=== PATIENT | female | born 1945 | race Caucasian/White ===

== ENCOUNTER 2017-05-24 07:15 | Emergency (ER) | payer MEDICARE, BC ==
[2017-05-24] MEDS ORDERED: Magnesium Sulfate 2 GM/100 ML BAG ONE (07:46)
[2017-05-24 07:59] LABS: #Basophils 0.1 thou/uL (0.0-0.2); #Eosinphils 0.3 thou/uL (0.0-0.7); #Lymphocytes 1.2 thou/uL (1.20-3.40); #Monocytes 0.5 thou/uL (0.11-0.59); #Neutrophils 6.6 thou/uL (1.40-6.50); %Basophils 0.7 % (0.0-1.0); %Monocytes 5.2 % (0.0-10.0); %Neutrophils 76.2 % (42.0-75.0); Hemoglobin 12.9 g/dL (12.0-16.0); Mean Corpuscular HGB CONC 33.4 g/dL (32.0-36.0); Mean Corpuscular Hemoglobin 32.8 pg (27.0-31.0); Mean Corpuscular Volume 98.3 fl (81.0-99.0); Mean Platelet Volume 6.7 fL (7.4-10.4); Platelet Count 227 thou/uL (130-400); RBC Distribution Width 13.7 % (11.5-14.5); Red Blood Cell (RBC) Count 3.93 mill/uL (4.20-5.40); White Blood Cell (WBC) Count 8.7 thou/uL (4.8-10.8)
--- NOTE | 2017-05-24 08:09 | RAD ---
PORTABLE CHEST: HISTORY: Dyspnea. COMPARISON: 11/28/15. FINDINGS: Heart mildly enlarged but stable in appearance. Mild vascular and interstitial prominence suggests m ild congestion. No confluent consolidation. No evidence of interval change when compared to the eleonora or study. IMPRESSION: Evidence of mild cardiomegaly and mild vascular congestion, stable in appearance from prior exam. POS: [facility]
[2017-05-24 08:21] LABS: ALT (SGPT) 16 U/L (8-55); AST (SGOT) 21 U/L (5-34); Albumin 4.1 g/dL (3.4-4.8); Alkaline Phosphatase 72 U/L (40-150); Anion Gap 12 mmol/L (10-20); BUN (Urea Nitrogen) 20 mg/dL (9.8-20.1); Bilirubin, Total 0.5 mg/dL (0.2-1.2); CK (CPK) 64 U/L (29-168); Calc. Creatinine Clearance 0 mL/min (70-130); Calcium 9.8 mg/dL (7.8-10.44); Carbon Dioxide 26 mmol/L (23-31); Chloride 105 mmol/L (98-107); Estimated GFR-MDRD 63; Globulin 2.7 g/dL (2.4-3.5); Glucose 102 mg/dL (83-110); Potassium 3.8 mmol/L (3.5-5.1); Protein, Total 6.8 g/dL (6.0-8.3); Sodium 139 mmol/L (136-145)
[2017-05-24 08:25] LABS: CKMB 1.2 ng/mL (0-6.6); Troponin I 0.022 ng/mL (< 0.028)
[2017-05-24] MEDS ORDERED: Ibuprofen 200 MG TAB ONE (08:33)
== END 2017-05-24 10:16 | disposition home or self-care (01) ==
LOC: ERS 07:15
DX: J44.1 Chronic obstructive pulmonary disease with (acute) exacerbation (principal); F41.9 Anxiety disorder, unspecified; M19.90 Unspecified osteoarthritis, unspecified site; E78.5 Hyperlipidemia, unspecified; I10 Essential (primary) hypertension; Z87.891 Personal history of nicotine dependence; Z79.82 Long term (current) use of aspirin; Z79.899 Other long term (current) drug therapy
CPT/HCPCS: 71045; 80053; 82553; 83880; 84484; 85025; 96365; J3475

== ENCOUNTER 2017-07-25 10:22 | Outpatient (CLI) | payer MEDICARE, BC ==
--- NOTE | 2017-07-25 11:44 | RAD ---
PA AND LATERAL CHEST: History: Dyspnea. Comparison: 06-21-17 FINDINGS: Heart size is upper normal and stable. Lungs show mild hyperexpansion. Lung leong appear clear with no infiltrate or vascular congestion apparent. Posterior gutters are blunted and I cannot exclude sma ll effusions. Otherwise, no acute process or interval change noted. POS: [facility]
== END 2017-07-25 10:23 | disposition home or self-care (01) ==
LOC: RAD 10:22
PROVIDERS: ATTEND Internal Medicine
DX: R06.00 Dyspnea, unspecified (principal)
CPT/HCPCS: 71046

== ENCOUNTER 2017-08-30 13:17 | Outpatient (CLI) | payer MEDICARE, BC | END 2017-08-30 13:18 | disposition home or self-care (01) | LOC: CP 13:17 | PROVIDERS: ATTEND Internal Medicine | DX: J44.9 Chronic obstructive pulmonary disease, unspecified (principal); J96.11 Chronic respiratory failure with hypoxia | CPT/HCPCS: 94060; 94727; 94729 ==

== ENCOUNTER 2019-03-11 08:23 | Outpatient (CLI) | payer MEDICARE, BC ==
[2019-03-11] MEDS ORDERED: Iopamidol 370 76% 100 ML VIAL ONE (10:50)
--- NOTE | 2019-03-11 11:30 | CT ---
EXAM: CTA abdomen and pelvis HISTORY: Abdominal aortic aneurysm COMPARISON: 08/31/2016 TECHNIQUE: Multiple contiguous axial images were obtained a CTA of the abdomen and pelvis without and with contrast. Sagittal and coronal 3-D MIP reformats were performed. FINDINGS: LIVER: Hypodensities measuring up to 3.1 cm in size represent cysts.. GALLBLADDER: Unremarkable. KIDNEYS: 2.4 cm hypodensity in the left kidney represents a cyst. SPLEEN: Unremarkable. PANCREAS: Unremarkable. BOWEL: Scattered diverticula in the colon. REPRODUCTIVE ORGANS: Unremarkable RETROPERITONEUM: No lymphadenopathy ABDOMINAL WALL SOFT TISSUES: Unremarkable BONES: Degenerative changes in the spine. ABDOMINAL AORTA: There is a stent graft within the aorta. The aorta measures 5.6 cm in greatest dimen jenifer. 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 CELIAC TRUNK: Patent SMA: Patent ALYSE: Occluded RENAL ARTERIES: A stent is seen in the proximal left renal artery. Mild atherosclerotic disease is se en in the proximal right renal artery. IMPRESSION: 1. Slight enlargement of abdominal aortic aneurysm with type II endoleak outside the stent graft. 2. Diverticulosis 3. Left renal cyst 4. Hepatic cysts
== END 2019-03-11 08:24 | disposition home or self-care (01) ==
LOC: CT 08:23
PROVIDERS: ATTEND Thoracic Surgery (Cardiothoracic Vascular Surgery)
DX: T82.330A Leakage of aortic (bifurcation) graft (replacement), initial encounter (principal); K57.90 Diverticulosis of intestine, part unspecified, without perforation or abscess without bleeding; N28.1 Cyst of kidney, acquired; K76.89 Other specified diseases of liver
CPT/HCPCS: 74174; 82565; Q9967

== ENCOUNTER 2020-02-02 16:24 | Observation (INO) | payer MEDICARE, BC ==
[2020-02-02 16:54] LABS: #Eosinphils 0.5 thou/uL (0.0-0.7); #Lymphocytes 2.3 thou/uL (1.20-3.40); #Monocytes 0.6 thou/uL (0.11-0.59); #Neutrophils 5.7 thou/uL (1.40-6.50); %Basophils 0.5 % (0.0-1.0); %Eosinophils 5.4 % (0.0-10.0); %Lymphocytes 25.2 % (21.0-51.0); %Monocytes 6.9 % (0.0-10.0); %Neutrophils 62.1 % (42.0-75.0); Hemoglobin 15.6 g/dL (12.0-16.0); Mean Corpuscular HGB CONC 34.7 g/dL (32.0-36.0); Mean Corpuscular Hemoglobin 32.8 pg (27.0-31.0); Mean Corpuscular Volume 94.5 fL (78.0-98.0); Platelet Count 259 thou/uL (130-400); RBC Distribution Width 13.6 % (11.5-14.5); Red Blood Cell (RBC) Count 4.75 mill/uL (4.20-5.40); White Blood Cell (WBC) Count 9.2 thou/uL (4.8-10.8)
--- NOTE | 2020-02-02 17:12 | RAD ---
EXAM: CHEST ONE VIEW HISTORY: Shortness of breath. Low oxygen saturation. COMPARISON: 07/25/2017 FINDINGS: Postoperative changes related to cardiac valve replacement are noted. Cardiac silhouette is magnified by projection. Pulmonary vasculature is within normal limits. There is lucency within the upper lung zones with increased interstitial opacities in the lung bases which may related to bullous emphy sematous changes in the upper lung zones with crowding of bronchovascular markings at each lung base. Similar finding was seen on prior exam. No consolidation or pleural fluid is identified. Promin ent left glenohumeral osteoarthropathy is present with postoperative changes right shoulder. IMPRESSION: 1. No acute cardiopulmonary process. 2. Chronic lung changes.
[2020-02-02 17:15] LABS: ALT (SGPT) 20 U/L (8-55); AST (SGOT) 29 U/L (5-34); Albumin 4.5 g/dL (3.4-4.8); Alkaline Phosphatase 95 U/L (40-110); Anion Gap 18 mmol/L (10-20); BUN (Urea Nitrogen) 31 mg/dL (9.8-20.1); Bilirubin, Total 0.5 mg/dL (0.2-1.2); Calc. Creatinine Clearance 0 mL/min (70-130); Calcium 10.2 mg/dL (7.8-10.44); Carbon Dioxide 24 mmol/L (23-31); Chloride 103 mmol/L (98-107); Estimated GFR-MDRD 47; Globulin 2.9 g/dL (2.4-3.5); Glucose 97 mg/dL (83-110); Potassium 4.2 mmol/L (3.5-5.1); Protein, Total 7.4 g/dL (6.0-8.3); Sodium 141 mmol/L (136-145)
[2020-02-02] MEDS ORDERED: methylPREDNISolone Sod Succ/PF 125 MG/2 ML VIAL ONE (17:40)
[2020-02-02] MEDS ORDERED: Lidocaine Viscous Sol 2% 15 ml UD Cup ONE (17:40)
[2020-02-02] MEDS ORDERED: Mag-Al 1200 mg/1200 mg/30 ML UDCUP ONE (17:40)
[2020-02-02] MEDS ORDERED: Aspirin Chewable 81 MG TAB ONE (17:40)
[2020-02-02 20:42] LABS: Troponin I 0.018 ng/mL (< 0.028)
[2020-02-02] MEDS ORDERED: HYDROcodone/Acetaminophen 5/325 mg Tablet PO PRN (22:27)
[2020-02-02 23:24] LABS: Troponin I 0.024 ng/mL (< 0.028)
[2020-02-03 03:55] LABS: #Lymphocytes 0.8 thou/uL (1.20-3.40); #Monocytes 0.1 thou/uL (0.11-0.59); %Basophils 0.3 % (0.0-1.0); %Eosinophils 0.1 % (0.0-10.0); %Lymphocytes 12.8 % (21.0-51.0); %Monocytes 0.8 % (0.0-10.0); Hemoglobin 15.3 g/dL (12.0-16.0); Mean Corpuscular HGB CONC 34.5 g/dL (32.0-36.0); Mean Corpuscular Hemoglobin 32.3 pg (27.0-31.0); Mean Corpuscular Volume 93.5 fL (78.0-98.0); Mean Platelet Volume 6.8 fL (7.4-10.4); Platelet Count 234 thou/uL (130-400); RBC Distribution Width 13.4 % (11.5-14.5); Red Blood Cell (RBC) Count 4.74 mill/uL (4.20-5.40); White Blood Cell (WBC) Count 5.8 thou/uL (4.8-10.8)
[2020-02-03 04:30] LABS: Anion Gap 15 mmol/L (10-20); BUN (Urea Nitrogen) 28 mg/dL (9.8-20.1); Calc. Creatinine Clearance 72 mL/min (70-130); Calcium 9.7 mg/dL (7.8-10.44); Carbon Dioxide 22 mmol/L (23-31); Chloride 105 mmol/L (98-107); Estimated GFR-MDRD 68; Glucose 140 mg/dL (83-110); Magnesium 2.2 mg/dL (1.6-2.6); Potassium 4.2 mmol/L (3.5-5.1); Sodium 138 mmol/L (136-145)
--- NOTE | 2020-02-03 05:43 | HP ---
REASON FOR ADMISSION: Chest pain. HISTORY OF PRESENT ILLNESS: This is a 74-year-old female patient who is presenting with shortness of breath and chest discomfort. History going back to approximately a week before her presentation. She has been doing a lot of work around the house and exposed to a lot of dust and she has been feeling somewhat short of breath, but today her shortness of breath became worse. She describes it as inability to take a full breath. Also describes pain across her chest. She does have chronic chest pain, chronic abdominal pain after her valve surgeries and abdominal surgeries, and she claims that her not feeling well exacerbated these chronic pains. In the morning, she felt okay, and at some point around 10:30 a.m., she felt short of breath. She felt chest pain, described as burning and pressure-like in nature in the midsternal area towards the mid abdominal area. The pain is worse with sitting. It is better with bending forward. When she bends forward, she breathes easier. PAST MEDICAL HISTORY: 1. High blood pressure. 2. Abdominal aortic aneurysm, post repair. 3. Mitral valve repair. 4. Heart disease, post stenting. 5. COPD. SOCIAL HISTORY: Quit smoking 4 years ago. Drinks alcohol occasionally. ALLERGIES: TO SULFA. FAMILY HISTORY: Reviewed and found to be noncontributory. REVIEW OF SYSTEMS: All systems reviewed, except the above-mentioned shortness of breath, found to be negative. PHYSICAL EXAMINATION: GENERAL: Awake, alert, oriented, does not appear in distress. VITAL SIGNS: Her blood pressure is 130/57, heart rate is 68, temperature is 98.5, saturating 95% on 2 L nasal cannula. HEENT: Head is nontraumatic and normocephalic. Pupils are equal and reactive. Extraocular movements are intact. Nonicteric sclerae. Well-injected conjunctivae. Oral mucosa normal. Nasal mucosa normal. NECK: Supple. No adenopathy. No murmur. Thyroid is not palpable. Trachea is midline. No supraclavicular adenopathy. CARDIOVASCULAR: S1, S2 regular. No murmurs. No gallops. No friction rubs. No displacement of PMI. LUNGS: Decreased air entry bilaterally. No wheezes, rhonchi, no crackles. ABDOMEN: Bowel sounds are positive. Nontender abdomen. No hepatosplenomegaly. EXTREMITIES: No lower extremity edema. No cyanosis noted. NEUROLOGIC: Cranial nerves 2 through 12 within normal limits. Normal motor function. Normal sensory function. Normal reflexes. LABORATORY DATA: Blood work shows WBC of 9.2, hemoglobin of 15.6, platelets of 259. INR 1. Sodium 141, potassium 4.2, bicarb of 24, BUN 31, creatinine 1.13. DIAGNOSTIC STUDIES: EKG shows a heart rate of 69 beats per minute. Nonspecific ST-segment changes, V2, V3; nonspecific T-wave changes. QT prolonged at 501, premature atrial contraction. ASSESSMENT AND PLAN: This is a 74-year-old female patient presenting with shortness of breath, could be due to exacerbation of her chronic obstructive pulmonary disease. Also atypical chest pain. So far, troponin negative. Cardiac: The patient will be admitted to telemetry. We will continue cycling her cardiac enzymes. We will consult Dr. Ortiz who is her systems security analyst for further input, and since the pain is better with leaning forward, we will do an echocardiogram to rule out pericarditis. Also, we will have her on baby aspirin and we will provide her with blood pressure control, and I am awaiting for her med rec to be done to reconcile her medications. Pulmonary: The patient does have history of chronic obstructive pulmonary disease. Her shortness of breath could be due to chronic obstructive pulmonary disease exacerbation in the setting of recent exposure to dusts and fumes due to the fact that she has been renovating her house, so we will have her on neb treatments. She did receive a dose of Solu-Medrol in the emergency room. For deep venous thrombosis prophylaxis, she will be on Lovenox. Her QT is prolonged. We will check a magnesium level. I did discuss with her code status. She wishes to be a full code. Job ID: [id number]
--- NOTE | 2020-02-03 09:08 | PDOC.HOSPP ---
- Subjective Encounter Date: 02/03/20 Encounter Time: 11:00 Subjective: Patient with some improvement in SOB. Waiting on community mental health social worker. Feels ready to go home. Back on room air and breathing well. - Objective Vital Signs & Weight: Vital Signs (12 hours) Temp Pulse Resp BP Pulse Ox 02/02/20 22:59 93 20 93 L 02/02/20 21:08 98.7 F 84 18 134/91 H 98 Weight Weight 169 lb 1.513 oz Result Diagrams: 02/03/20 03:43 02/03/20 03:43 Hospitalist ROS - Review of Systems Constitutional: denies: fever, chills Respiratory: reports: shortness of breath. denies: cough, wheezing Cardiovascular: denies: chest pain, palpitations Gastrointestinal: denies: nausea, vomiting, abdominal pain - Medication Medications: Active Medications Generic Name Dose Route Start Last Admin Trade Name Freq PRN Reason Stop Dose Admin Albuterol/Ipratropium 3 ml 02/03/20 01:00 02/02/20 22:59 Ipratropium/Albuterol Sulfate 3 Ml Neb EZPAP 3 ml [id number] ISHAAN Administration - Exam General Appearance: NAD, awake alert ENT: moist mucosa Heart: RRR, no murmur, no gallops, no rubs Respiratory: no rales, no ronchi, no tachypnea Respiratory - other findings: mild wheezing, good air movement, no increased WOB Gastrointestinal: soft, non-tender, non-distended, normal bowel sounds Psychiatric: normal affect, normal behavior, A&O x 3 Hosp A/P (1) Chest pain Code(s): R07.9 - CHEST PAIN, UNSPECIFIED Status: Acute Plan: acute on chronic, positional, ECHO pending (2) Shortness of breath Code(s): R06.02 - SHORTNESS OF BREATH Status: Acute (3) COPD exacerbation Code(s): J44.1 - CHRONIC OBSTRUCTIVE PULMONARY DISEASE W (ACUTE) EXACERBATION Status: Acute (4) CAD (coronary artery disease) Code(s): I25.10 - ATHSCL HEART DISEASE OF [place] CORONARY ARTERY W/O ANG PCTRS Status: Chronic (5) Dyslipidemia Code(s): E78.5 - HYPERLIPIDEMIA, UNSPECIFIED Status: Chronic (6) HTN (hypertension) Code(s): I10 - ESSENTIAL (PRIMARY) HYPERTENSION Status: Chronic - Plan Patient with flair of her chronic chest pain, worse with leaning forward. Associated with SOB. Treating for COPD exacc with steroids and nebs. ECHO and cardiology consult pending. Possibly home later today. DVT Proph: Lovenox GI Proph: Pepcid
[2020-02-03] MEDS ORDERED: predniSONE 20 MG TAB PO SCH (09:45)
[2020-02-03] MEDS ORDERED: Aspirin Chewable 81 MG TAB ONE (12:58)
[2020-02-03] MEDS ORDERED: Enoxaparin Sodium 40 MG/0.4 ML SYRINGE ONE (12:58)
[2020-02-03] MEDS: Aspirin 81 mg Enteric Coated Tablet PO SCH (13:03)
[2020-02-03] MEDS: Enoxaparin Sodium 40 MG/0.4 ML SYRINGE SC SCH (13:03)
[2020-02-03] MEDS ORDERED: predniSONE 20 MG TAB ONE (13:37)
[2020-02-03] MEDS ORDERED: Lisinopril 10 MG TAB ONE (13:37)
[2020-02-03] MEDS ORDERED: Lisinopril 10 MG TAB PO SCH ×2 (13:45→16:00)
[2020-02-03 14:27] LABS: SARS-CoV-2 MS2 Positive; SARS-CoV-2 N Gene Negative; SARS-CoV-2 S Gene Negative; SARS-CoV-2 by NAA Not Detected (NotDetected); SARS-CoV-2 orf1ab Negative
[2020-02-03 15:37] VITALS: BMI 27.8
[2020-02-03] MEDS ORDERED: Dicyclomine 20 MG TAB PO PRN (16:25)
[2020-02-03] MEDS: Famotidine 20 MG TAB PO SCH (20:39)
[2020-02-03] MEDS: Zolpidem Tartrate 5 MG TAB PO SCH ×2 (20:40→20:42)
[2020-02-04] MEDS: Zolpidem Tartrate 5 MG TAB PO SCH (00:06)
--- NOTE | 2020-02-04 00:51 | CON ---
DATE OF CONSULTATION: 02/03/2020 INDICATION FOR CONSULTATION: A 74-year-old female with dyspnea with a cardiac history in the past and also some mild chest discomfort. HISTORY OF PRESENT ILLNESS: This very unfortunate 74-year-old female, who I followed for quite some time now. She has had a significant cardiac history. She has undergone a mitral valve repair. She has also had a stent placement to the right coronary artery. She underwent a pericardial mitral valve replacement doing a robotic surgery. She has had a stent placed to the right coronary artery. She has also had I believe an aortic aneurysm repair by Dr. Johnson and she had been at home, doing relatively well. Her major procedure is the last major procedure for the mitral valve replacement and coronary artery disease was in 2018 in October. She had been home doing some remodeling and helping move some of the radu and things like that and she became more short of breath over the last several days. She does believe with more congestion. She did think that it is possible that she had COVID exposure back in May or July of this year, but this time she just mainly complained of having increasing shortness of breath and did have some chest discomfort which she described started in the lower or mid part of the sternal area, retrosternal area and then radiated down or into the abdominal area. Her cardiac enzymes are negative. There is no indication that she has suffered a myocardial infarction. Her EKG does not indicate any evidence of ischemia. She has a normal sinus rhythm with no acute changes otherwise that would indicate a myocardial infarction or ischemia. She has had no previous history of reflux. Until recently, she has noted some discomfort after she eats with some burning-type sensation. At this time, she is relatively stable. She has no chest discomfort and her shortness of breath has improved. She was given I believe a breathing treatment in the emergency room and since that time has felt better. PAST MEDICAL HISTORY: Significant for the mitral valve replacement actually. She has also had a history of right coronary artery stent placement. The right coronary artery was in October of 2017 I believe. She has also had left renal artery stent placement in 2013. She had a drug-eluting stent placed to the right coronary artery. She has history of pneumonia in the past. She has also had a history of diverticulitis. She has dyslipidemia. She has had a bladder tumor, hypertension. She has had abdominal aortic aneurysm repair. FAMILY HISTORY: Noncontributory. SOCIAL HISTORY: She smoked in the past many years, but stopped several years ago. She has no significant alcohol use. MEDICATIONS: Prior to admission included; 1. Atorvastatin 10 mg a day. 2. Lisinopril/hydrochlorothiazide 10/12.5 once a day. 3. Aspirin 81 mg a day. 4. Dicyclomine 20 mg a day. 5. Metformin HCL 500 mg once a day. 6. She also was on Anoro Ellipta 62.5/25 once a day. 7. Zolpidem 10 mg q.p.m. 8. Multivitamins. 9. Plavix 75 mg a day. 10. Nitroglycerin p.r.n. as needed, which she has not required any nitroglycerin. She has had no chest pain. ALLERGIES: SHE IS ALLERGIC TO SULFA AND QUESTIONABLE ANTIBIOTICS. SHE DOES HAVE A BIOPROSTHETIC MITRAL VALVE. REVIEW OF SYSTEMS: Relatively unremarkable except what was noted in the history of present illness. She mainly complains of shortness of breath and fatigue. PHYSICAL EXAMINATION: GENERAL: Reveals an elderly well-developed and well-nourished female, who is in no acute distress at this time. She is alert. She is oriented. VITAL SIGNS: Show a blood pressure 145/92. She is afebrile. Heart rate is in the 80s and shows a sinus rhythm, O2 saturations is the 96% on room air. Otherwise, she appears to be stable. HEENT: Shows the head to be normocephalic and atraumatic. Carotid pulses are present. Did not hear any bruits. CHEST: She does have some right basilar expiratory rales and what appears to be some expiratory wheezing. The left side appears to be clear. CARDIOVASCULAR: Reveals a regular rate and rhythm. She has normal S1 and S2. I do not hear any significant murmurs, heaves, thrills, bruits, or rubs. ABDOMEN: Soft and nontender. Positive bowel sounds are present. EXTREMITIES: Show no clubbing, cyanosis, or edema. Pedal pulses are present. NEUROLOGICAL: The patient appears to be fully intact. SKIN: Warm and dry. DIAGNOSTIC STUDIES: Her chest x-ray done yesterday from the emergency room showed no acute changes. She did have what appeared to be some chronic changes with some postoperative changes noted and also she did have some interstitial opacities noted in the lung bases, which could be related to bullous emphysema and some other chronic changes, but did not appear to be changed from previous chest x-rays. LABORATORY DATA: Cardiac enzymes were negative for myocardial infarction. Her troponin I was 0.019. Her sodium was 138, potassium was 4.2, BUN was 28 with a creatinine of 0.82, and blood sugar was 140 and on admission was 97. Her hematology shows WBC of 5.8, hemoglobin was 15.3, and platelet count was 234,000 and she was negative for COVID. IMPRESSION: 1. Elderly female with increasing shortness of breath of uncertain etiology. This may be due to some materials that she came in contact with when she is doing some remodeling of her house. She has had some problems with shortness of breath in the past and does have some chronic lung disease, but she appears to be significantly improved now from what she states she was in the emergency room and O2 saturations are now stable. 2. History of mitral valve replacement. This appears to be stable at this time. Her last echocardiogram did not show any significant abnormality, appeared to be very stable. 3. History of abdominal aneurysm. This has been repaired in the past. I do not have any indication that she is having any dissection and does not appear to be this type of pain. She has been followed in the past by Dr. Johnson for her abdominal aortic aneurysm. 4. History of coronary artery disease. She underwent angioplasty and stent placement to the ostial right coronary artery and has remained stable since that time from 2018. She had a drug-coated stent placed and has remained stable. 5. She has a history of hyperlipidemia. Her last cholesterol check was stable. She has not had a cholesterol checked on this admission and this can certainly be followed as an outpatient. She did have an echocardiogram in July of this year, which showed ejection fraction of 55% to 60% with normal functioning bioprosthetic valve in the mitral position with only trace mitral valve regurgitation. She did have some probable diastolic dysfunction. We will be more than happy to continue to follow the patient with you at this time. On this admission, it appear that her cardiac status overall however appears to be stable. She did receive some prednisone in the emergency room as well as a GI cocktail and also aspirin. She does take albuterol inhaler at home. We will continue to follow her, but at this time from a cardiac standpoint again, she does appear to be stable. No further cardiac workup is indicated at this time. Job ID: [id number]
[2020-02-04] MEDS ORDERED: predniSONE 20 MG TAB PO SCH (08:00)
[2020-02-04] MEDS: Famotidine 20 MG TAB PO SCH (08:24)
[2020-02-04] MEDS: Aspirin 81 mg Enteric Coated Tablet PO SCH (08:24)
[2020-02-04] MEDS: Enoxaparin Sodium 40 MG/0.4 ML SYRINGE SC SCH (08:25)
--- NOTE | 2020-02-04 08:55 | PDOC.HOSPP ---
- Subjective Encounter Date: 02/04/20 Encounter Time: 10:30 Subjective: Patient reports resolution of her shortness of breath and chest pain. Eager to go home. Has nebulizers at home. - Objective Vital Signs & Weight: Vital Signs (12 hours) Temp Pulse Resp BP Pulse Ox 02/04/20 07:45 98.5 F 84 18 148/77 H 93 L 02/04/20 06:53 69 14 96 02/04/20 04:31 88 134/82 02/04/20 03:11 97.9 F 81 19 158/83 H 92 L Weight Weight 172 lb 6 oz I&O: 02/03/20 02/04/20 02/05/20 06:59 06:59 06:59 Intake Total 480 Balance 480 Result Diagrams: 02/03/20 03:43 02/03/20 03:43 Hospitalist ROS - Review of Systems Constitutional: denies: fever, chills Respiratory: denies: cough, shortness of breath Cardiovascular: denies: chest pain, palpitations Gastrointestinal: denies: nausea, vomiting, abdominal pain - Medication Medications: Active Medications Generic Name Dose Route Start Last Admin Trade Name Freq PRN Reason Stop Dose Admin Albuterol/Ipratropium 3 ml 02/03/20 01:00 02/04/20 06:53 Ipratropium/Albuterol Sulfate 3 Ml Neb EZPAP 3 ml [id number] ISHAAN Administration Aspirin 81 mg 02/03/20 09:00 02/04/20 08:24 Aspirin 81 Mg Enteric Coated Tablet PO 81 mg DAILY ISHAAN Administration Atorvastatin Calcium 10 mg 02/04/20 09:00 02/04/20 08:24 Atorvastatin Calcium 10 Mg Tab PO 10 mg DAILY ISHAAN Administration Clopidogrel Bisulfate 75 mg 02/04/20 09:00 02/04/20 08:24 Clopidogrel Bisulfate 75 Mg Tab PO 75 mg DAILY ISHAAN Administration Enoxaparin Sodium 40 mg 02/03/20 09:00 02/04/20 08:25 Enoxaparin Sodium 40 Mg/0.4 Ml Syringe SC Not Given 0900 ISHAAN Famotidine 20 mg 02/03/20 21:00 02/04/20 08:24 Famotidine 20 Mg Tab PO 20 mg BID ISHAAN Administration Lisinopril 20 mg 02/04/20 09:00 02/04/20 08:24 Lisinopril 20 Mg Tab PO 20 mg DAILY ISHAAN Administration Prednisone 40 mg 02/04/20 08:00 02/04/20 08:24 Prednisone 20 Mg Tab PO 02/06/20 08:01 40 mg QAM-WM ISHAAN Administration Sertraline HCl 25 mg 02/04/20 09:00 02/04/20 08:24 Sertraline Hcl 25 Mg Tab PO 25 mg DAILY ISHAAN Administration Zolpidem Tartrate 5 mg 02/03/20 21:00 02/04/20 00:06 Zolpidem Tartrate 5 Mg Tab PO 5 mg HS ISHAAN Administration - Exam General Appearance: NAD, awake alert ENT: moist mucosa Heart: RRR, no murmur, no gallops, no rubs Respiratory: CTAB, no wheezes, no rales, no ronchi Gastrointestinal: soft, non-tender, non-distended, normal bowel sounds Psychiatric: normal affect, normal behavior, A&O x 3 Hosp A/P (1) Chest pain Code(s): R07.9 - CHEST PAIN, UNSPECIFIED Status: Resolved (2) Shortness of breath Code(s): R06.02 - SHORTNESS OF BREATH Status: Resolved (3) COPD exacerbation Code(s): J44.1 - CHRONIC OBSTRUCTIVE PULMONARY DISEASE W (ACUTE) EXACERBATION Status: Acute (4) CAD (coronary artery disease) Code(s): I25.10 - ATHSCL HEART DISEASE OF [place] CORONARY ARTERY W/O ANG PCTRS Status: Chronic (5) Dyslipidemia Code(s): E78.5 - HYPERLIPIDEMIA, UNSPECIFIED Status: Chronic (6) HTN (hypertension) Code(s): I10 - ESSENTIAL (PRIMARY) HYPERTENSION Status: Chronic - Plan Patient with flair of her chronic chest pain, worse with leaning forward. Associated with SOB. Treating for COPD exacc with steroids and nebs. ECHO pending. Dr. Ortiz consulted and thinks she is stable from a cardiac standpoint and doesn't need further workup of her heart. D/C home with 2 more days of steroids. DVT Proph: Lovenox GI Proph: Pepcid
[2020-02-04] MEDS ORDERED: Clopidogrel Bisulfate 75 MG TAB PO SCH (09:00)
[2020-02-04] MEDS ORDERED: Lisinopril 20 MG TAB PO SCH (09:00)
[2020-02-04] MEDS ORDERED: Atorvastatin Calcium 10 MG TAB PO SCH (09:00)
[2020-02-04 11:14] VITALS: BP 118/64; TEMP 97.8
--- NOTE | 2020-02-04 20:23 | PDOC.CPN ---
- Subjective Date: 02/04/20 Time: 09:00 Interval history: She feels better. No new overnight events. - Review of Systems General: denies: fever/chills, weight/appetite/sleep changes, night sweats, fatigue Respiratory: denies: cough, congestion, shortness of breath, exercise intolerance Cardiovascular: denies: chest pain, palpitation, edema, paroxysmal nocturnal dyspnea, orthopnea Gastrointestinal: denies: nausea, vomiting, diarrhea, constipation, abd pain, GI bleeding Musculoskeletal: denies: pain, tenderness, stiffness, swelling, arthritis/arthralgias Neurological: denies: numbness, syncope, seizure, weakness - Objective Allergies/Adverse Reactions: Allergies Allergy/AdvReac Type Severity Reaction Status Date / Time Sulfa (Sulfonamide Allergy Mild rash, Verified 02/03/20 15:39 Antibiotics) swelled up bee stings Allergy Unknown swelled up Uncoded 05/06/15 15:49 Vital Signs & Weight: Vital Signs Temp Pulse Resp BP Pulse Ox 02/04/20 11:00 97.8 F 81 20 118/64 94 L Weight 172 lb 6 oz - Physical Exam General: alert & oriented x3, no apparent distress HEENT: normocephaly Neck: no JVD/HJR Cardiac: regular rate and rhythm Lungs: clear to auscultation Neuro: grossly intact Abdomen: unremarkable Extremities: no cyanosis, no edema Musculoskeletal: normal range of motion - Labs Result Diagrams: 02/03/20 03:43 02/03/20 03:43 Troponin/CKMB Troponin I 0.024 ng/mL (< 0.028) 02/02/20 22:39 - Telemetry Sinus rhythms and dysrhythmias: sinus rhythm - Assessment/Plan Assessment/Plan: 1. chest pain. Doubt cardiac. Resolved. 2. COPD exacerbation. Improved with treatment. 3. HTN. Reasonably well controlled. 4. CAD. s/p stent to the ostial/proximal RCA. 5. s/p MVR. 6. Pneumonia
--- NOTE | 2020-02-05 02:26 | DIS ---
DATE OF ADMISSION: 02/02/2020 DATE OF DISCHARGE: 02/04/2020 PRIMARY CARE PHYSICIAN: . REASON FOR ADMISSION: Chest pain, shortness of breath. DIAGNOSES AT DISCHARGE: 1. Chronic obstructive pulmonary disease exacerbation. 2. Coronary artery disease. 3. Dyslipidemia. 4. Hypertension. PROCEDURES: Echocardiogram showing an ejection fraction of 55% to 60% with diastolic dysfunction. CONSULTATIONS: Cardiology, Dr. Oritz. SUMMARY OF HOSPITAL COURSE: This is a 74-year-old female who presented with shortness of breath and chest discomfort. She was doing a lot of work around her house and exposed to a lot of dust and then became short of breath over about a week and then on the day of admission, her shortness of breath got worse. She could not take in a full deep breath and described pain across the front of her chest. She does report chronic chest pain and chronic abdominal pain but states this pain did not feel quite like her chronic pain. The patient was evaluated in the emergency room. She had negative troponins, nonspecific EKG. She did test negative for COVID and had a negative chest x-ray. She was admitted to the hospital given steroids and nebulizing treatments. Dr. Ortiz was consulted. Dr. Ortiz determined the chest pain was not likely cardiac, more related to her respiratory issues. The patient improved markedly with the steroids in the hospital and nebulizing treatments. She was initially had to be put on oxygen, but this was able to be weaned off quickly. She was breathing well on room air at the time of discharge. DISCHARGE MANAGEMENT: Discharged home. ACTIVITY: As tolerated. DIET: Healthy heart diet. FOLLOWUP: Follow up with Dr. Ortiz in 14 days and with primary care physician in one week. DISCHARGE MEDICATIONS: 1. Prednisone 20 mg two tablets daily for two more days, four tabs dispensed. 2. Atorvastatin 10 mg daily. 3. Plavix 75 mg daily. 4. Bentyl 20 mg daily as needed. 5. Lisinopril 20 mg daily. 6. Sertraline 25 mg daily. 7. Ambien 5 mg at night. 8. Albuterol nebulizers as needed. Job ID: [id number]
--- NOTE | 2020-02-07 11:54 | EKG ---
Test Reason : Blood Pressure : / mmHG Vent. Rate : 100 BPM Atrial Rate : 100 BPM P-R Int : 130 ms QRS Dur : 068 ms QT Int : 336 ms P-R-T Axes : 048 054 045 degrees QTc Int : 433 ms Normal sinus rhythm Possible Left atrial enlargement Borderline ECG Confirmed by ELLE SOLER M.D. ([id number]), assistant production editor MICHEL STALLWORTH ([id number]) on 02/07/2020 11:54:04 AM Referred By: Confirmed By:ELLE SOLER M.D.
== END 2020-02-04 12:15 | disposition home or self-care (01) ==
LOC: ERS 16:24 → ERHOLD 19:38 → 2NO 02-03 15:25
PROVIDERS: ADMIT Internal Medicine; ATTEND Emergency Medicine
DX: J44.1 Chronic obstructive pulmonary disease with (acute) exacerbation (principal); I25.10 Atherosclerotic heart disease of native coronary artery without angina pectoris; E78.5 Hyperlipidemia, unspecified; I10 Essential (primary) hypertension; G89.29 Other chronic pain; R07.9 Chest pain, unspecified; R10.9 Unspecified abdominal pain; J18.9 Pneumonia, unspecified organism; Z87.891 Personal history of nicotine dependence; Z79.02 Long term (current) use of antithrombotics/antiplatelets; Z79.899 Other long term (current) drug therapy; Z88.2 Allergy status to sulfonamides; Z91.030 Bee allergy status; Z95.2 Presence of prosthetic heart valve; Z95.5 Presence of coronary angioplasty implant and graft; Z20.828 Contact with and (suspected) exposure to other viral communicable diseases
CPT/HCPCS: 71045; 80048; 80053; 83735; 83880; 84484 ×2; 85025 ×2; 93005; 93306; 94640 ×3; 94760; 96374; 99285; U0003; 36415; 87635; 96372; G0378; J1650; J2930; J7512; J7620

== ENCOUNTER 2020-06-10 09:08 | Outpatient (CLI) | payer MEDICARE, BC | END 2020-06-10 09:09 | disposition home or self-care (01) | LOC: BICCT 09:08 | PROVIDERS: ATTEND Thoracic Surgery (Cardiothoracic Vascular Surgery) | DX: I71.4 Abdominal aortic aneurysm, without rupture (principal); I70.0 Atherosclerosis of aorta; J98.11 Atelectasis; K76.9 Liver disease, unspecified; K57.30 Diverticulosis of large intestine without perforation or abscess without bleeding; K42.9 Umbilical hernia without obstruction or gangrene; M16.0 Bilateral primary osteoarthritis of hip; M47.816 Spondylosis without myelopathy or radiculopathy, lumbar region; M43.17 Spondylolisthesis, lumbosacral region; I97.89 Other postprocedural complications and disorders of the circulatory system, not elsewhere classified | CPT/HCPCS: 74174; 82565 ==

== ENCOUNTER 2022-07-18 08:26 | Outpatient (CLI) | payer MEDICARE, BC ==
[2022-07-18] MEDS ORDERED: Iopamidol-370 76% 500 ML MDV (1 ML CHARGE) ONE (14:44)
== END 2022-07-18 08:27 | disposition home or self-care (01) ==
LOC: BICCT 08:26
PROVIDERS: ATTEND Thoracic Surgery (Cardiothoracic Vascular Surgery)
DX: I71.40 Abdominal aortic aneurysm, without rupture, unspecified (principal)
CPT/HCPCS: 74174; 82565

== ENCOUNTER 2023-09-21 06:24 | Day surgery (SDC) | payer MEDICARE ==
[2023-09-20 08:27] VITALS: BMI 28.2
[2023-09-20 09:14] LABS: Hemoglobin 14.4 g/dL (12.0-15.5); Mean Corpuscular HGB CONC 34.3 g/dL (32.0-36.0); Mean Corpuscular Volume 96.3 fL (81.6-98.3); Mean Platelet Volume 9.6 fL (7.4-10.4); Platelet Count 213 10x3/uL (150-450); RBC Distribution Width 15.1 % (11.5-14.5); Red Blood Cell (RBC) Count 4.36 10x6/uL (3.90-5.03); White Blood Cell (WBC) Count 6.1 10x3/uL (3.5-10.5)
[2023-09-20 09:15] LABS: Prothrombin Time 10.6 sec (9.5-12.1)
[2023-09-20 09:21] LABS: Anion Gap 16 mmol/L (10-20); BUN (Urea Nitrogen) 23 mg/dL (9.8-20.1); Calc. Creatinine Clearance 66 mL/min (70-130); Calcium 9.5 mg/dL (7.8-10.44); Carbon Dioxide 21 mmol/L (23-31); Chloride 107 mmol/L (98-107); Estimated GFR 68; Glucose 90 mg/dL (83-110); Potassium 4.3 mmol/L (3.5-5.1); Sodium 140 mmol/L (136-145)
[2023-09-21] MEDS ORDERED: Vancomycin (BATCH) 1.5 GM/300 ML BAG ONE (06:56)
[2023-09-21] MEDS ORDERED: Clindamycin/D5W 600 mg/50 ml Premix Bag ONE (07:10)
[2023-09-21] MEDS ORDERED: Gentamicin 80 MG/2 ML VIAL ONE (07:30)
[2023-09-21] MEDS ORDERED: CEFAZOLIN 2 GM VIAL ONE (07:39)
[2023-09-21] MEDS ORDERED: Ondansetron PF 4 MG/2 ML Vial ONE (08:47)
[2023-09-21] MEDS ORDERED: PROPOFOL 20 ML ONE (08:48)
[2023-09-21] MEDS ORDERED: ePHEDrine Sulfate 50 MG/10 ML VIAL ONE (08:48)
[2023-09-21] MEDS ORDERED: Glycopyrrolate 0.2 MG/ML 5 ML SYRINGE ONE (08:48)
[2023-09-21] MEDS ORDERED: Ketamine In 0.9 % NaCl 50 MG/5 ML SYRINGE ONE (08:48)
[2023-09-21] MEDS ORDERED: Lidocaine 1% PF 5 ML VIAL ONE (08:48)
[2023-09-21] MEDS ORDERED: fentaNYL 50 mcg/mL 1 mL Vial ONE ×2 (08:48→11:05)
[2023-09-21] MEDS ORDERED: Etomidate 40 MG (20 mL) VIAL ONE (08:48)
[2023-09-21] MEDS ORDERED: Dexamethasone 20 MG/5 ML VIAL ONE (09:20)
[2023-09-21] MEDS ORDERED: HYDROcodone/Acetaminophen 5/325 mg Tablet ONE (12:29)
== END 2023-09-21 15:45 | disposition home or self-care (01) ==
LOC: SDC 06:24
PROVIDERS: ATTEND Internal Medicine Cardiovascular Disease
PROC: 0JH608Z Insertion of Defibrillator Generator into Chest Subcutaneous Tissue and Fascia, Open Approach (ICD-10-PCS; principal; 2023-09-21)
PROC: 0JH63FZ Insertion of Subcutaneous Defibrillator Lead into Chest Subcutaneous Tissue and Fascia, Percutaneous Approach (ICD-10-PCS; 2023-09-21)
DX: I11.0 Hypertensive heart disease with heart failure (principal); I50.22 Chronic systolic (congestive) heart failure; I25.2 Old myocardial infarction; I44.7 Left bundle-branch block, unspecified; I25.10 Atherosclerotic heart disease of native coronary artery without angina pectoris; E78.5 Hyperlipidemia, unspecified; Z79.82 Long term (current) use of aspirin; Z79.899 Other long term (current) drug therapy; Z88.2 Allergy status to sulfonamides; Z91.030 Bee allergy status; Z98.890 Other specified postprocedural states; Z87.891 Personal history of nicotine dependence
CPT/HCPCS: 33225; 33249; 71045; 80048; 85027; 85610; 93005; C1763; C1769 ×3; C1777; C1882; C1894; C1898; C1900; J1100; J1580; J2405; J2704; J3010; J3370; J3490 ×2; Q9967

== ENCOUNTER 2024-04-29 11:29 | Outpatient (CLI) | payer MEDICARE | END 2024-04-29 11:30 | disposition home or self-care (01) | LOC: SCSRAD 11:29 | PROVIDERS: ATTEND Physician Assistant | DX: R06.02 Shortness of breath (principal) | CPT/HCPCS: 71046 ==

== ENCOUNTER 2025-01-27 00:37 | Inpatient (IN) | payer MEDICARE ==
[2025-01-27 01:25] LABS: #Basophils Less than 0.03 10x3/uL (0.0-0.2); #Eosinophils 0.03 10x3/uL (0.0-0.7); #Monocytes 0.93 10x3/uL (0.11-0.59); #Neutrophils 13.90 10x3/uL (1.40-6.50); %Basophils 0.1 % (0.0-1.0); %Eosinophils 0.2 % (0.0-10.0); %Lymphocytes 2.9 % (21.0-51.0); %Monocytes 6.0 % (0.0-10.0); %Neutrophils 89.6 % (42.0-75.0); Hematocrit 41.9 % (36.0-47.0); Hemoglobin 13.3 g/dL (12.0-16.0); Mean Corpuscular Hemoglobin 30.2 pg (27.0-31.0); Mean Corpuscular Volume 95.0 fL (78.0-98.0); Platelet Count 166 10x3/uL (130-400); Red Blood Cell (RBC) Count 4.41 mill/uL (4.20-5.40); White Blood Cell (WBC) Count 15.52 10x3/uL (4.8-10.8)
[2025-01-27 01:43] LABS: ALT (SGPT) 17 U/L (Less than 34); AST (SGOT) 21 U/L (11-34); Albumin 3.2 g/dL (3.1-4.5); Alkaline Phosphatase 102 U/L (40-110); Anion Gap 16 mmol/L (10-20); BUN (Urea Nitrogen) 35 mg/dL (9.8-20.1); Bilirubin, Total 0.6 mg/dL (0.3-1.2); Calc. Creatinine Clearance 0 mL/min (70-130); Calcium 9.9 mg/dL (7.8-10.44); Carbon Dioxide 19 mmol/L (23-31); Chloride 108 mmol/L (98-107); Globulin 3.4 g/dL (2.4-3.5); Glucose 118 mg/dL (83-110); Lipase 21 U/L (8-78); Potassium 4.7 mmol/L (3.5-5.1); Sodium 138 mmol/L (136-145)
[2025-01-27] MEDS ORDERED: cefTRIAXone (ROCEPHIN) 2 GM VIAL ONE (01:45)
[2025-01-27] MEDS ORDERED: Ibuprofen 800 MG TAB ONE (01:49)
[2025-01-27] MEDS ORDERED: Vancomycin 1 GM/200 ML (FROZEN) BAG ONE (02:28)
[2025-01-27] MEDS ORDERED: Melatonin 3 MG TAB PO PRN (08:00)
[2025-01-27] MEDS ORDERED: Senokot S 8.6-50 MG TAB PO PRN (08:00)
[2025-01-27 08:53] LABS: Bacteria/HPF None Seen HPF (None Seen); CAUTI Indications for Culture Fever or rigors; Glucose, Urine (Dipstick) Greater than 1000 mg/dL (Negative); Leukocyte Negative Leu/uL (Negative); Protein, Urine (Dipstick) 50 mg/dL (Neg-Trace); RBC/HPF None Seen HPF (0-3); WBC/HPF 0-3 HPF (0-3)
[2025-01-27 09:06] LABS: Specific Gravity, Urine Greater than 1.050 (1.002-1.036); Urine Culture Reflex No No
[2025-01-27] MEDS ORDERED: Iopamidol-370 76% 500 ML MDV (1 ML CHARGE) ONE (11:02)
[2025-01-27] MEDS ORDERED: Gabapentin 300 MG CAP ONE (11:04)
[2025-01-27] MEDS ORDERED: Aspirin 81 mg Enteric Coated Tablet ONE (11:04)
[2025-01-27] MEDS ORDERED: predniSONE 20 MG TAB ONE (11:04)
[2025-01-27] MEDS ORDERED: Azithromycin 500 MG VIAL ONE (11:04)
[2025-01-27] MEDS: Azithromycin 500 MG in Sodium Chloride 0.9% 250 ML 250 ML IVPB SCH (11:11)
[2025-01-27] MEDS: Aspirin 81 mg Enteric Coated Tablet PO SCH (11:15)
[2025-01-27] MEDS: predniSONE 20 MG TAB PO SCH (11:15)
[2025-01-27] MEDS: Gabapentin 300 MG CAP PO SCH (11:15)
[2025-01-27 14:50] VITALS: BMI 31.8
[2025-01-27 15:41] LABS: #Basophils Less than 0.03 10x3/uL (0.0-0.2); #Eosinophils Less than 0.03 10x3/uL (0.0-0.7); #Monocytes 0.46 10x3/uL (0.11-0.59); #Neutrophils 13.43 10x3/uL (1.40-6.50); %Basophils 0.1 % (0.0-1.0); %Eosinophils 0.1 % (0.0-10.0); %Lymphocytes 4.3 % (21.0-51.0); %Monocytes 3.1 % (0.0-10.0); %Neutrophils 91.0 % (42.0-75.0); Hematocrit 43.9 % (36.0-47.0); Hemoglobin 13.7 g/dL (12.0-16.0); Mean Corpuscular Hemoglobin 30.7 pg (27.0-31.0); Mean Corpuscular Volume 98.4 fL (78.0-98.0); Platelet Count 164 10x3/uL (130-400); Red Blood Cell (RBC) Count 4.46 mill/uL (4.20-5.40); White Blood Cell (WBC) Count 14.77 10x3/uL (4.8-10.8)
[2025-01-27 15:48] LABS: Albumin 3.1 g/dL (3.1-4.5); Anion Gap 18 mmol/L (10-20); BUN (Urea Nitrogen) 27 mg/dL (9.8-20.1); BUN/Creatinine Ratio 22.88; Calc. Creatinine Clearance 51 mL/min (70-130); Calcium 9.7 mg/dL (7.8-10.44); Carbon Dioxide 20 mmol/L (23-31); Chloride 108 mmol/L (98-107); Glucose 103 mg/dL (83-110); Potassium 4.5 mmol/L (3.5-5.1); Sodium 141 mmol/L (136-145)
[2025-01-27] MEDS: Enoxaparin 40 MG (0.4 mL) SYRINGE SC SCH (16:08)
[2025-01-27] MEDS: Mometasone 100 MCG/Formoterol 5 MCG 120 PUFF INHALER INH SCH (19:33)
[2025-01-28] MEDS: cefTRIAXone\\ROCEPHIN 1 GM in Sodium Chloride 0.9% 100 ML IVPB SCH (03:39)
[2025-01-28 04:25] LABS: #Basophils Less than 0.03 10x3/uL (0.0-0.2); #Eosinophils Less than 0.03 10x3/uL (0.0-0.7); #Monocytes 0.72 10x3/uL (0.11-0.59); #Neutrophils 10.24 10x3/uL (1.40-6.50); %Basophils 0.2 % (0.0-1.0); %Eosinophils 0.0 % (0.0-10.0); %Lymphocytes 5.5 % (21.0-51.0); %Monocytes 6.1 % (0.0-10.0); %Neutrophils 87.2 % (42.0-75.0); Hematocrit 39.4 % (36.0-47.0); Hemoglobin 12.7 g/dL (12.0-16.0); Mean Corpuscular Hemoglobin 31.1 pg (27.0-31.0); Mean Corpuscular Volume 96.3 fL (78.0-98.0); Platelet Count 163 10x3/uL (130-400); Red Blood Cell (RBC) Count 4.09 mill/uL (4.20-5.40); White Blood Cell (WBC) Count 11.75 10x3/uL (4.8-10.8)
[2025-01-28 04:35] LABS: Albumin 2.8 g/dL (3.1-4.5); Anion Gap 15 mmol/L (10-20); BUN (Urea Nitrogen) 30 mg/dL (9.8-20.1); BUN/Creatinine Ratio 22.90; Calc. Creatinine Clearance 46 mL/min (70-130); Calcium 9.4 mg/dL (7.8-10.44); Carbon Dioxide 18 mmol/L (23-31); Chloride 112 mmol/L (98-107); Glucose 115 mg/dL (83-110); Potassium 4.6 mmol/L (3.5-5.1); Sodium 140 mmol/L (136-145)
[2025-01-28] MEDS: Pantoprazole 40 MG DR.TAB PO SCH (08:55)
[2025-01-28] MEDS: predniSONE 20 MG TAB PO SCH (08:56)
[2025-01-28] MEDS: Acetaminophen 325 MG TAB PO PRN (10:44)
[2025-01-28] MEDS: Azithromycin 500 MG in Sodium Chloride 0.9% 250 ML 250 ML IVPB SCH (10:44)
[2025-01-29 06:34] LABS: #Basophils Less than 0.03 10x3/uL (0.0-0.2); #Eosinophils Less than 0.03 10x3/uL (0.0-0.7); #Monocytes 0.61 10x3/uL (0.11-0.59); #Neutrophils 8.24 10x3/uL (1.40-6.50); %Basophils 0.1 % (0.0-1.0); %Eosinophils 0.1 % (0.0-10.0); %Lymphocytes 6.6 % (21.0-51.0); %Monocytes 6.4 % (0.0-10.0); %Neutrophils 86.0 % (42.0-75.0); Hematocrit 36.4 % (36.0-47.0); Hemoglobin 11.2 g/dL (12.0-16.0); Mean Corpuscular Hemoglobin 30.4 pg (27.0-31.0); Mean Corpuscular Volume 98.6 fL (78.0-98.0); Platelet Count 183 10x3/uL (130-400); Red Blood Cell (RBC) Count 3.69 mill/uL (4.20-5.40); White Blood Cell (WBC) Count 9.58 10x3/uL (4.8-10.8)
[2025-01-29 06:55] LABS: ALT (SGPT) 39 U/L (Less than 34); AST (SGOT) 38 U/L (11-34); Albumin 2.7 g/dL (3.1-4.5); Alkaline Phosphatase 89 U/L (40-110); Anion Gap 13 mmol/L (10-20); BUN (Urea Nitrogen) 30 mg/dL (9.8-20.1); Bilirubin, Total 0.3 mg/dL (0.3-1.2); Calc. Creatinine Clearance 55 mL/min (70-130); Calcium 9.3 mg/dL (7.8-10.44); Carbon Dioxide 20 mmol/L (23-31); Chloride 112 mmol/L (98-107); Globulin 3.4 g/dL (2.4-3.5); Glucose 98 mg/dL (83-110); Potassium 4.4 mmol/L (3.5-5.1); Sodium 141 mmol/L (136-145)
[2025-01-29] MEDS: Sacubitril 49 MG/Valsartan 51 MG TABLET PO SCH (09:34)
[2025-01-29 11:56] VITALS: TEMP 97.6
[2025-01-29 16:07] VITALS: BP 154/87
== END 2025-01-29 17:00 | disposition home or self-care (01) | DRG 871 ==
LOC: ERS 00:37 → ERHOLD 06:22 → 2NO 15:54
PROVIDERS: ADMIT Internal Medicine; ATTEND Student in an Organized Health Care Education/Training Program
DX: A41.9 Sepsis, unspecified organism (principal); J96.01 Acute respiratory failure with hypoxia; N39.0 Urinary tract infection, site not specified; J44.1 Chronic obstructive pulmonary disease with (acute) exacerbation; N17.9 Acute kidney failure, unspecified; I50.22 Chronic systolic (congestive) heart failure; I11.0 Hypertensive heart disease with heart failure; I25.10 Atherosclerotic heart disease of native coronary artery without angina pectoris; E78.5 Hyperlipidemia, unspecified; Z88.2 Allergy status to sulfonamides; Z95.2 Presence of prosthetic heart valve; Z91.030 Bee allergy status; Z98.890 Other specified postprocedural states; Z79.82 Long term (current) use of aspirin; Z79.899 Other long term (current) drug therapy
CPT/HCPCS: 36415; 71275; 74177; 80053; 80069; 81001; 81015; 83036; 83605; 83690; 83880; 84484; 85025; 87040; 87077; 87081; 87086; 93005; 94640; 96365; 96367; J0456; J0696; J3373; J7030; J7050; J7512; Q9967

== ENCOUNTER 2025-03-24 12:15 | Outpatient (CLI) | payer MEDICARE | END 2025-03-24 12:16 | disposition home or self-care (01) | LOC: SCSRAD 12:15 | PROVIDERS: ATTEND Physician Assistant | DX: J44.9 Chronic obstructive pulmonary disease, unspecified (principal); R91.8 Other nonspecific abnormal finding of lung field | CPT/HCPCS: 71046 ==